=== PATIENT | female | born 1925 | race Caucasian/White ===

== ENCOUNTER 2016-10-08 07:46 | Outpatient (CLI) | payer MEDICARE, OTHER ==
--- NOTE | 2016-10-08 19:25 | Diagnostic Imaging Report ---
SYLWIA MATAMOROS [facility] [address] Formerly [facility] [address] [address] Report Submission Date: Oct 08, 2016 11:46:44 AM CDT Patient Study Name: ROSI PATEL Date: Oct 08, 2016 8:09:21 AM CDT Modality Type: US Gender: F Description: UNILAT LTD STDY EXT VEINS : [birth year] Institution: [facility] Physician: SYLWIA MATAMOROS Examination: Ultrasound vein History: Calf discomfort Comparison exam: None provided Findings: Sonographic evaluation of the left lower extremity venous system from the groin to the popliteal fossa inclusive. Normal compressibility. No luminal filling defect. Normal waveforms and response to augmentation. 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 Complex fluid collection with peripheral neural thickening in the popliteal region. Structure measures 6.6 x 5.1 x 2.8 cm. Mild soft tissue edema. Impression: No evidence for deep venous thrombosis. Large complex Armenta's cyst. Electronically signed on Oct 08, 2016 11:46:44 AM CDT by: Ochoa WALLER
== END 2016-10-08 07:47 ==
LOC: RAD 07:46
PROVIDERS: ATTEND Physician Assistant
DX: I82.501 Chronic embolism and thrombosis of unspecified deep veins of right lower extremity (principal); M79.89 Other specified soft tissue disorders
CPT/HCPCS: 93971